=== PATIENT | female | born 1965 | race Hispanic/Latino ===

== ENCOUNTER 2019-03-16 18:00 | Observation (INO) | payer BC ==
[~2019-03-16] VITALS: Ht 170.2 cm; Wt 115.8 kg
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
[2019-03-16] MEDS ORDERED: ASPIRIN 81 MG CHEW TAB PO ONE ×2 (18:30→20:45)
--- NOTE | 2019-03-16 19:12 | NUR ---
45 to one hour for ems for ct
--- NOTE | 2019-03-16 19:21 | Diagnostic Imaging Report ---
EXAMINATION: PA and lateral views of the chest. COMPARISON: None CLINICAL HISTORY: High blood pressure, chest pain DISCUSSION: Lines/tubes: None. Lungs: The lungs are well inflated and clear. No evidence of pneumonia or pulmonary edema. Pleura: No pleural effusion or pneumothorax. Heart and mediastinum: The cardiomediastinal silhouette is normal. Bones and soft tissues: No acute bony abnormalities. IMPRESSION: No acute cardiopulmonary abnormalities. Signed by: Dr. Kaushik Colvin M.D. on 03/16/2019 7:18 PM
--- OUTSIDE RECORDS SUMMARY | 2019-03-16 20:46 | XMS REPORT ---
Author [facility] Address Unknown Phone Unavailable Care Team Providers Care Sock Mender Name Role Phone [place] Unavailable Unavailable Problems This patient has no known problems. Allergies, Adverse Reactions, Alerts This patient has no known allergies or adverse reactions. Medications This patient has no known medications. Results Test Description Test Time Test Comments Text Results Atomic Results Result Comments [facility] [facility] 2019-03-16 19:17:00 [place] [address] Patient Name: MORTEZA PARSONS MR #: [id number] : 1965 Age/Sex: 53/F Req #: [id number] Adm Physician: Ordered by: ELWIS COFFEY MD Report #: [id number] Location: [facility] Room/Bed: Procedure: [id number] HOPD/CXR 2 VIEW - [facility] Exam Date: Exam Time: REPORT STATUS: Signed EXAMINATION: PA and lateral views of the chest. COMPARISON: None CLINICAL HISTORY: High blood pressure, chest pain DISCUSSION: Lines/tubes: None. Lungs: The lungs are well inflated and clear. No evidence of pneumonia or pulmonary edema. Pleura: No pleural effusion or pneumothorax. Heart and mediastinum: The cardiomediastinal silhouette is normal. Bones and soft tissues: No acute bony abnormalities. IMPRESSION: No acute cardiopulmonary abnormalities. Signed by: Dr. Regla Cardoza M.D. on 03/16/2019 7:18 PM Dictated By: REGLA CARDOZA MD 17 Transcribed By: HANK on 03/16/191917 COPY TO: LEWIS COFFEY MD
[2019-03-16 22:12] VITALS: BP 146/67
[2019-03-16] MEDS ORDERED: ONDANSETRON HCL INJ 2MG/ML 2ML 2 MG/ML VIAL IV PRN (22:15)
[2019-03-16] MEDS ORDERED: ACETAMINOPHEN 325 MG TAB PO PRN (22:15)
[2019-03-16] MEDS ORDERED: MOBIC15 MG (22:20)
[2019-03-16] MEDS ORDERED: OMEPRAZOLE40 MG (22:20)
[2019-03-16 22:22] VITALS: BP 146/67
--- NOTE | 2019-03-16 23:14 | Diagnostic Imaging Report ---
History: Rule out intracranial abnormality Comparison studies: None Technique: Axial images were obtained from the skull base to the vertex. Coronal and sagittal reconstructions obtained from the axial data. Dose modulation, iterative reconstruction, and/or weight based adjustment of the mA/kV was utilized to reduce the radiation dose to as low as reasonably achievable. Findings: Scalp/skull: No abnormalities. No fractures, blastic or lytic lesions. Extra-axial spaces: No masses. No fluid collections. Brain sulci: Appropriate for age. Ventricles: Normal in size and configuration. No hydrocephalus. Parenchyma: No abnormal densities. No masses, hemorrhage, acute or chronic cortical vascular insults. Sellar/suprasellar region: No abnormalities Craniocervical junction: Patent foramen magnum. No Chiari one malformation. IMPRESSION: No abnormalities . Signed by: DR Byron Judd M.D. on 03/17/2019 12:10 AM
[2019-03-17 00:30] VITALS: BP 137/59
[2019-03-17 05:11] VITALS: BP 111/55
[2019-03-17 06:16] LABS: CREATINE KINASE MB 0.4 ng/mL (0-5.0)
[2019-03-17 06:49] LABS: CHOL/HDL RATIO 2.6 (3.0-3.6)
--- NOTE | 2019-03-17 06:53 | NUR ---
Handoff report and walking rounds with outgoing evening or night nurse supervisor nurse. Pt awake, oriented, and denies SOB, denies CP.
[2019-03-17 08:18] VITALS: BP 101/55
[2019-03-17 09:00] VITALS: BP 101/55
[2019-03-17] MEDS ORDERED: ASPIRIN 81 MG ENTERIC COATED PO SCH (09:00)
[2019-03-17] MEDS ORDERED: PANTOPRAZOLE SOD 40 MG TABEC PO SCH ×2 (09:00)
--- NOTE | 2019-03-17 10:34 | NUR ---
CASE MANAGEMENT INITIAL ASSESSMENT Geospatial Information Scientist to bedside to discuss plan of care with patient/family. CM/SW role and care transitions discussed. Anticipated discharge plan discussed along with duration of care. CM/SW discussed patients right to make decisions in care. CM/SW work hours given. Patient lives: WITH AND 2 CHILDREN Admit/Transfer: ER FROM URGENT CLINIC Hospital/ER visits since last admit:SEP 2018 WAS AT [facility] R/T FALL IN SHOWER POA/Emergency contact: : SIL PARSONS [phone] Current/Previous Home Health: NONE PCP/Follow-up Care: [facility] Current/Previous DME: NONE Medications (referring to index hospitalization or the first time you were in the hospital) a. Were changes made in your medications when you were in the hospital on [date of index hospitalization]? Yes No X Not sure Explain: Note: If no or not sure, please skip to question d b. Did you understand the changes? Yes No Explain: c. Were you able to obtain your new medications right away? Yes No n/a SNF only Explain: d. Were you able to take your medications like the doctor wanted you to? X Yes No Explain: e. Did the hospital give you an accurate, easy to understand list of medications when you left? X Yes No n/a SNF only Explain: Scale of 1-10 how comfortable does patient feel with disease management in outpatient settin Other Services: Employment Status: EMPLOYED Areas of Concerns: NONE Referral Needs: NONE Education Needs: NONE IMM/LEON given and signed (if applicable): N/A Goal for discharge:TO RETURN HOME INDEPENDENT CM/SW left business card at the bedside with contact information. Name and number was also written on the patients whiteboard. Patient verbalized understanding of discussion. CM will follow-up with ongoing discharge and transition of care needs.
[2019-03-17 11:36] VITALS: BP 118/56
[2019-03-17 13:24] LABS: CREATINE KINASE MB 0.6 ng/mL (0-5.0)
--- NOTE | 2019-03-17 15:05 | History and Physical ---
CHIEF COMPLAINT: Chest pressure and pain. HISTORY: A 53-year-old female with a strong family history of coronary artery disease, sister in the age of 50s due to coronary artery disease, came in with chest pressure started last at [facility], but then persisted, which brought the patient to the emergency room for evaluation. The patient went to outpatient emergency room urgent care, EKG was normal sinus rhythm and lab work otherwise unremarkable. The patient's cardiac enzymes first set is negative. She is still having some pressure like. She is also stating that her pressure like sometimes in the epigastric area and burping and omeprazole help. The patient has also noticed, however, that she has been gaining weight and that her lower extremity both legs increase in swelling. The patient is otherwise stable at this time. PAST MEDICAL HISTORY: Obesity. PAST SURGICAL HISTORY: Lumbar spine fusion and left elbow surgery. SOCIAL HISTORY: The patient does not smoke or use alcohol. No recreational drug use. FAMILY HISTORY: Sister just recently from coronary artery disease at age in the 50s. PHYSICAL EXAMINATION: VITAL SIGNS: Temperature is 98, blood pressure 111/55, pulse rate is 80, respirations 18. GENERAL: The patient is not in acute distress. She is awake. HEENT: Normocephalic, atraumatic. Anicteric. NECK: Supple grossly. PULMONARY: Clear. CARDIOVASCULAR: Regular rate and rhythm. ABDOMEN: Soft and remarkably obese. EXTREMITY: 1+ edema. NEUROLOGIC: No gross focal deficit. LABORATORY DATA: Sodium is 141, potassium 3.9, chloride is 107, bicarb is 27, BUN is 14, creatinine 1.0, glucose is 114. WBC is 8.3, hemoglobin is 13.8, hematocrit is 41.3, and platelet is 182. EKG is normal sinus rhythm. Chest x-ray is unremarkable. IMPRESSION: 1. Chest pain and chest pressure, left chest. 2. Obesity. 3. Bilateral lower extremity edema secondary to recent weight gain. PLAN: Diuresis with IV Lasix. Cardiology consultation. 2D echocardiogram. We will monitor the patient closely on observation. MD GEOVANNY Chacon/CURTIS /[id number]
--- NOTE | 2019-03-17 16:06 | Consultation ---
DATE OF CONSULTATION: 03/17/2019 Cardiology Consultation CONSULTING PHYSICIAN: Arpan Erwin MD, Interventional Cardiology. REASON FOR CONSULTATION: Chest pain and palpitations. HISTORY OF PRESENT ILLNESS: Ms. Srinivasan is a 53-year-old woman with morbid obesity, otherwise no reported past medical history, who presents to [facility] with complaints of palpitations of sudden onset followed by brief episode of chest pain and shortness of breath as well as lightheadedness, which occurred for a couple of seconds while the patient was standing up in [facility]. Symptoms have not happened in the past and have not recurred since. She denies any exertional symptoms. She has no other current complaints. On evaluation, her EKG shows normal sinus rhythm, normal EKG. Her serial cardiac enzymes have been negative. She had an echocardiogram done, which reveals preserved left ventricular systolic function, LVEF of 60%-65%, borderline mild LVH, mild tricuspid regurgitation, trace mitral regurgitation and an estimated RVSP of 33 mmHg. She is currently symptom free. REVIEW OF SYSTEMS: A 120-system review negative except for as noted above. ALLERGIES: TO SULFA. PAST MEDICAL HISTORY: No past medical history reported. SOCIAL HISTORY: Negative for smoking, alcohol, or drugs. FAMILY HISTORY: Her sister from cardiac tumor, unspecified. Mother recently diagnosed with hypertension. PHYSICAL EXAMINATION: VITAL SIGNS: Temperature 97.4, heart rate 79, respiratory rate 18, blood pressure 118/56, and O2 saturation 97% on room air. GENERAL: In no acute distress, alert. NECK: No JVD. CHEST: Clear to auscultation. CARDIOVASCULAR: Regular rate and rhythm. Normal S1 and S2. No S3 or S4. No murmurs or rubs. ABDOMEN: Soft, nontender, nondistended. EXTREMITIES: Trace edema of bilateral lower extremities. Warm distal extremities. CARDIOVASCULAR MEDICATIONS: Reviewed. On aspirin 81 mg daily. STUDIES: Reviewed. Serial cardiac enzymes negative. Triglycerides 109, total cholesterol 121, LDL 52, HDL 47. No additional lab work available currently. Chest x-ray, no acute cardiopulmonary abnormality. Brain CT, no abnormalities. On telemetry, so far in sinus rhythm. ASSESSMENT: 1. A 53-year-old woman presenting with brief episode of palpitations, presyncope, and atypical chest pain and shortness of breath. 2. Morbid obesity. 3. Trace lower extremity edema, bilateral. RECOMMENDATIONS: 1. Outpatient stress test. 2. Outpatient personnel monitor, also keep on telemetry while in-house, so far in sinus rhythm. 3. Weight loss. 4. Check TSH, CBC, and complete metabolic panel. 5. Lower extremity venous ultrasound to rule out DVT. MD JOSH Fernandez/MODKhanh /[id number]
[2019-03-17 16:38] VITALS: BP 126/59
--- NOTE | 2019-03-17 17:00 | NUR ---
A/C TO DR CHANEY PATIENT CAN GO HOME PT NEED OUT PATIENT FOLLOW UP FOR CARDIOLOGY
--- NOTE | 2019-03-17 17:17 | NUR ---
PT REQUESTED TO GO HOME PAGED AND NOTIFIED DR SMITH GOT THE DISCHARGE ORDER
--- NOTE | 2019-03-17 17:48 | NUR ---
PT WENT HOME IN SAFE CONDITION WITH HER
== END 2019-03-17 17:48 | disposition home or self-care (01) ==
LOC: FSED 18:00 → ERHOLD 20:39 → IMCU 21:50 → MED/SURG2 03-17 11:33
PROVIDERS: ADMIT Internal Medicine; ATTEND Internal Medicine
DX: I25.10 Atherosclerotic heart disease of native coronary artery without angina pectoris (principal); E66.9 Obesity, unspecified; Z68.41 Body mass index [BMI] 40.0-44.9, adult
CPT/HCPCS: 36415; 70450; 71046; 80053; 80061; 81003; 82550; 82553 ×2; 84484 ×2; 85025; 85379; 93005; 93306; 99284; G0378 ×2; S0164

== ENCOUNTER → 2021-02-11 | Outpatient (CLI) | payer BC ==
[~2021-02-11] MED LIST: MOBIC15 MG; OMEPRAZOLE40 MG
== END ==
LOC: CT 07:53
PROVIDERS: ATTEND Internal Medicine Cardiovascular Disease
DX: R06.00 Dyspnea, unspecified (principal)
CPT/HCPCS: 71250